=== PATIENT | female | born 1940 | race Caucasian/White ===

== ENCOUNTER → 2016-05-29 | Outpatient (CLI) | payer BC ==
[~2016-05-29] MED LIST: AMLH/550 PO; ATOR10TA88 PO; CHOL2000 PO; COEN150C PO; DORZ2SOL20 OPB; DSWCR TD; FLUT0.0529 NAE; LATA0.009 OPB; LOTE0.5S OPB; POTA10CA28 PO
--- NOTE | 2016-05-29 09:41 | DIAGNOSTIC IMAGING REPORT ---
RIGHT NECK ULTRASOUND CLINICAL HISTORY: Right submandibular swelling. Evaluate for lymphadenopathy. COMPARISON STUDY: None TECHNIQUE: Sonography of the right neck at site of swelling was performed. FINDINGS: No mass, enlarged lymph node or fluid collection was identified within the right upper neck at site of maximal swelling. Sonography revealed the right submandibular gland which was similar in appearance to the left submandibular gland. IMPRESSION: No sonographic abnormality identified at site of swelling. Clinical follow up to ensure stability is recommended. If interval enlargement, repeat ultrasound or CT is recommended. Electronically signed by: Kirill Escobar M.D. 05/29/2016 9:40 AM Dictated Date/Time: 05/29/2016 9:38 AM
== END | disposition home or self-care (01) ==
LOC: C.ULTRBC 09:16
PROVIDERS: ATTEND Family Medicine
DX: R59.0 Localized enlarged lymph nodes (principal)

== ENCOUNTER → 2016-08-23 | Outpatient (CLI) | payer BC ==
[~2016-08-23] MED LIST changes: +ATOR10TA82 PO; -ATOR10TA88 PO
--- NOTE | 2016-08-23 13:47 | MAMMOGRAPHY REPORT ---
BILATERAL DIGITAL SCREENING MAMMOGRAM TOMOSYNTHESIS WITH CAD: 08/23/2016 CLINICAL HISTORY: Asymptomatic. Personal history of breast cancer. TECHNIQUE: Breast tomosynthesis in addition to standard 2D mammography was performed. Current study was also evaluated with a Computer Aided Detection (CAD) system. COMPARISON: Comparison is made to exams dated: 08/22/2015 mammogram, 08/18/2014 mammogram, 08/16/2013 m ammogram, 08/12/2012 mammogram, 08/12/2011 mammogram, and 08/03/2010 mammogram - [facility] nter. BREAST COMPOSITION: The tissue of both breasts is heterogeneously dense, which may obscure small mas ses. FINDINGS: No suspicious masses, calcifications, or areas of architectural distortion are noted in ei ther breast. There has been no significant interval change compared to prior exams. There are stable post surgical changes in the left breast from prior lumpectomy. IMPRESSION: ACR BI-RADS CATEGORY 2: BENIGN There is no mammographic evidence of malignancy. A 1 year screening mammogram is recommended. The pa tient will receive written notification of the results. Approximately 10% of breast cancers are not detected with mammography. A negative mammographic report should not delay biopsy if a clinically suggestive mass is present. Munira Parikh M.D. ah/:08/23/2016 08:03:08 Pulmonary Function Technician: Chelsi MARTINEZ(Mp)(M), [facility] letter sent: Normal 1/2 BI-RADS Code: ACR BI-RADS Category 2: Benign
== END | disposition home or self-care (01) ==
LOC: C.MAMM 07:32
PROVIDERS: ATTEND Family Medicine
DX: Z12.31 Encounter for screening mammogram for malignant neoplasm of breast (principal); Z85.3 Personal history of malignant neoplasm of breast; Z08 Encounter for follow-up examination after completed treatment for malignant neoplasm

== ENCOUNTER → 2016-12-02 | Outpatient (CLI) | payer BC ==
[~2016-12-02] MED LIST changes: -ATOR10TA82 PO; +ATOR10TA88 PO
== END | disposition home or self-care (01) ==
LOC: C.MAMM 10:44
PROVIDERS: ATTEND Family Medicine
DX: M85.852 Other specified disorders of bone density and structure, left thigh (principal)